=== PATIENT | female | born 1975 | race Caucasian/White ===

== ENCOUNTER 2024-06-01 13:26 | Emergency (ER) | payer MEDICAID ==
[~2024-06-01] VITALS: Ht 170.2 cm; Wt 74.1 kg
[~2024-06-01 13:26] MED LIST: AMOX TR-K CLV1 EAC1 PO; METFORMIN HCL500 MG PO; VYVANSE70 MG
[2024-06-01 15:40] LABS: BASOPHILS 1.1 % (0-2); HEMATOCRIT 39.2 % (35.0-50.0); HEMOGLOBIN 13.1 g/dL (12.0-18.0); LYMPHOCYTES 33.1 % (24-44); MCHC 33.4 g/dl (30-36); MCV 95.6 fl (81-99); MONOCYTES 8.9 % (0-12); NEUTROPHILS 51.9 % (39-80); PLATELET COUNT 356 K/uL (140-440); RDW 15.1 (10.5-15.0)
[2024-06-01 15:54] LABS: ALBUMIN 3.5 g/dL (3.4-5.0); ALBUMIN/GLOBULIN RATIO 1.21 (1.1-2.4); ANION GAP 8.1 (7-21); BILIRUBIN, TOTAL 0.2 ng/dL (0.2-1.0); BUN/CREATININE RATIO 23.28 (6.0-28.6); CREATININE, SERUM 0.73 mg/dL (0.55-1.02); POTASSIUM 4.1 mmol/L (3.5-5.1); PROTEIN, TOTAL 6.4 g/dL (6.4-8.2)
[2024-06-01 16:31] VITALS: BP 131/89
== END 2024-06-01 18:38 | disposition home or self-care (01) ==
LOC: ED 13:26
PROVIDERS: Emergency Medicine
DX: T18.9XXA Foreign body of alimentary tract, part unspecified, initial encounter (principal); W44.H0XA Other sharp object unspecified, entering into or through a natural orifice, initial encounter; R73.03 Prediabetes; Z79.899 Other long term (current) drug therapy
CPT/HCPCS: 36415; 74177; 80053; 85025; 99284-25